=== PATIENT | male | born 1955 | race Caucasian/White ===

== ENCOUNTER → 2021-06-11 07:33 | Outpatient (CLI) | payer MEDICARE, OTHER, SELFPAY ==
--- NOTE | ~2021-06-11 | MR_ITS ---
EXAMINATION: MR shoulder RT wo con DATE: 06/11/2021 08:33 INDICATION: Right shoulder pain TECHNIQUE: Magnetic resonance imaging (MRI) of the right shoulder was performed without intravenous c ontrast. Sequences included axial PD-weighted FS FSE, coronal oblique PD-weighted FS FSE, coronal obl ique T2-weighted FS FSE, sagittal PD-weighted FS FSE, and sagittal T1-weighted SE. COMPARISON: Right shoulder radiographs dated 04/13/2021 FINDINGS: Coracoacromial arch: The acromion undersurface is curved in morphology (type II). The coracoacromial ligament is normal. M ild to moderate acromioclavicular osteoarthritis. Rotator cuff: Mild distal supraspinatus tendinopathy without discrete tear. The infraspinatus, teres minor tendons are normal. Mild subscapularis tendinopathy with partial tear involving the majority of the cephalad two thirds of the lesser tuberosity footplate. The bursal side of the tendon is intact and contiguous with the intact transverse humeral ligament. The articular side of the tendon also appears to remain intact and attached to the medial margin of the lesser tuberosity footplate. The long head biceps te ndon is subluxed across the medial rim of the intertubercular groove and across the subscapularis ten don tear defect. There is mild fatty atrophy of the subscapularis muscle belly. Biceps tendon, glenoid labrum and glenohumeral cartilage: Long head of the biceps tendon is normal. There is a tear of the 10:00 to 11:00 position of the poste rior superior glenoid labrum. Mild subarticular cystic change along the superior rim of the glenoid a t the 12:30 position which suggests either occult more anterior extension of the labral tear or focal high-grade chondromalacia. Cartilage is otherwise normal in appearance. Fluid: Physiologic amount of fluid in the glenohumeral joint and biceps tendon sheath. No loose osteochondra l bodies. No abnormally increased fluid signal in the subacromial/subdeltoid bursa to suggest bursiti s. Bones: Normal marrow signal with no edema, fracture or abnormal marrow replacing process. IMPRESSION: 1. Mild supraspinatus and subscapularis tendinopathy with partial-thickness tear involving the majori ty of the cephalad two thirds of the lesser tuberosity footplate of the subscapularis tendon allowing medial subluxation of the otherwise normal long head biceps tendon. 2. Tear at the posterior superior glenoid labrum possibly extending to involve the superior labrum gi corina the mild subarticular cystic change at the superior rim of the glenoid. 3. Mild to moderate acromioclavicular osteoarthritis. Reviewed, dictated and finalized at location A. IMPRESSION: 1. Mild supraspinatus and subscapularis tendinopathy with partial-thickness tea r involving the majority of the cephalad two thirds of the lesser tuberosity fo otplate of the subscapularis tendon allowing medial subluxation of the otherwis e normal long head biceps tendon. 2. Tear at the posterior superior glenoid labrum possibly extending to involve the superior labrum given the mild subarticular cystic change at the superior r im of the glenoid. 3. Mild to moderate acromioclavicular osteoarthritis.
== END ==
PROVIDERS: Visit Provider Nurse Practitioner Family
DX: M19.011 Primary osteoarthritis, right shoulder (principal); S43.431A Superior glenoid labrum lesion of right shoulder, initial encounter; X58.XXXA Exposure to other specified factors, initial encounter
CPT/HCPCS: 73221

== ENCOUNTER 2021-12-29 07:28 | Outpatient (CLI) | payer MEDICARE, OTHER, SELFPAY ==
--- NOTE | ~2021-12-29 | NM_ITS ---
EXAMINATION: NM bone scan limited area DATE: 12/29/2021 11:03 INDICATION: Chronic left hip pain TECHNIQUE: 25 mCi Tc-99m MDP was administered intravenously. Delayed whole-body scintigrams were obt ained. COMPARISON: Left hip MR dated 12/13/2016 and radiographs dated 09/27/2016 FINDINGS: There are photopenic defects in the region of the bilateral femoral heads consistent with bilateral t otal hip arthroplasties. Otherwise relatively symmetric pattern of bone activity with no foci of abno rmal increased uptake to suggest fracture or loosening. IMPRESSION: 1. Bilateral total hip arthroplasties with no foci of abnormal uptake to suggest loosening or fractur e. Reviewed, dictated and finalized at location B. IMPRESSION: 1. Bilateral total hip arthroplasties with no foci of abnormal uptake to sugges t loosening or fracture.
== END 2021-12-29 07:29 | disposition home or self-care (01) ==
LOC: ANHIMG 07:39
PROVIDERS: PCP Family Medicine
DX: Z96.642 Presence of left artificial hip joint (principal)
CPT/HCPCS: 78300; A9561

== ENCOUNTER 2022-06-20 23:08 | Emergency (ER) | payer MEDICARE, OTHER, SELFPAY ==
--- NOTE | ~2022-06-20 | CT_ITS ---
EXAMINATION: CT brain wo con DATE: 06/21/2022 00:28 INDICATION: Vertigo. TECHNIQUE: Computed tomography (CT) of the head was performed without intravenous contrast. The mA wa s adjusted according to patient size. Iterative reconstruction technique was employed. The dose-lengt h product was 681.00 mGy-cm. COMPARISON: None FINDINGS: There is no intracranial hemorrhage, acute infarction, or abnormal intracranial mass lesion . The ventricles are normal in size. There is mild mucosal thickening in the paranasal sinuses. The m astoid air cells are normal. There are likely changes of ocular lens replacement surgeries. IMPRESSION: 1. Normal brain. Reviewed, dictated and finalized at location B. IMPRESSION: 1. Normal brain.
[2022-06-20 23:14] VITALS: BP 176/85; PULSE 64; RESP 16; TEMP 36.4; O2SAT 98
--- NOTE | 2022-06-20 23:18 | ECG_ITS ---
Measurements Intervals [place] Rate: 57 P: 38 VT: 161 QRS: -30 QRSD: 98 T: 58 QT: 428 QTc: 420 Interpretive Statements SINUS BRADYCARDIA WITH SINUS ARRHYTHMIA BORDERLINE LEFT AXIS DEVIATION [QRS AXIS < -20] ABNORMAL ECG NO PREVIOUS ECG AVAILABLE FOR COMPARISON Electronically Signed On 06-21-2022 14:06:48 CDT by Burke Gonzales M.D.
[2022-06-20 23:34] VITALS: PULSE 63; RESP 13; O2SAT 96
[2022-06-20 23:43] VITALS: BP 154/80; PULSE 59; RESP 21; O2SAT 96
[2022-06-20 23:45] VITALS: PULSE 58; RESP 21; O2SAT 94
[2022-06-20 23:46] VITALS: BP 144/79; PULSE 61; RESP 20; O2SAT 96
[2022-06-20 23:47] VITALS: PULSE 61; RESP 20; O2SAT 96
[2022-06-20 23:56] LABS: Basophils Absolute Auto 0.1 K/mm3 (0.0-0.1); Basophils Percent Auto 0.4 % (0.2-1.2); Eosinophils Absolute Auto 0.1 K/mm3 (0-0.3); Eosinophils Percent Auto 0.9 % (0-4.4); Hematocrit 43.5 % (42.0-52.0); Hemoglobin 14.4 g/dL (14.0-18.0); Immature Granulocyte Absolute 0.05 K/mm3 (0.00-0.031); Immature Granulocyte Percent A 0.4 % (0-0.5); Lymphocytes Absolute Auto 1.59 K/mm3 (0.9-3.2); Lymphocytes Percent Auto 13.6 % (18.3-44.2); Mean Corpuscular HGB Conc 33.1 g/dl (32-36); Mean Corpuscular Volume 93.5 fl (80-100); Mean Platelet Volume 10.8 fl (7.4-10.4); Monocytes Percent Auto 8.6 % (2.6-8.5); Neutrophils Absolute Auto 8.9 K/mm3 (1.3-6.7); Neutrophils Percent Auto 76.1 % (45.5-73.1); Platelet Count Result 255 k/mm3 (150-375); Red Blood Count 4.65 M/mm3 (4.6-6.20); Red Cell Distribution Width 13.1 % (11.5-14.5); White Blood Count 11.7 K/mm3 (4.5-10.0)
[2022-06-21] VITALS (11 sets, daily range): BP systolic 144–147; BP diastolic 76–78; PULSE 52–61; RESP 18–23; O2SAT 95–96
[2022-06-21 00:09] LABS: Alanine Aminotransferase 30 U/L (6-50); Albumin Level 4.4 g/dL (3.5-5.1); Alkaline Phosphatase 86 U/L (38-126); Anion Gap 9 mmol/L (8-16); Aspartate Amino Transferase 25 U/L (17-59); Bilirubin,Total 0.4 mg/dL (0.2-1.3); Blood Urea Nitrogen 27 mg/dL (9-20); Calcium 9.1 mg/dL (8.4-10.2); Carbon Dioxide 28 mmol/L (22-30); Chloride 101 mmol/L (98-107); Estimated CRCL calculation 79 ml/min; Estimated Glomerular Filt Rate > 60; Glucose 153 mg/dL (65-110); Potassium 3.7 mmol/L (3.4-5.0); Sodium 138 mmol/L (137-145)
--- NOTE | 2022-06-21 00:25 | ED.GENADULT ---
HPI - General Adult General Chief complaint: Dizziness Stated complaint: dizziness Time Seen by Provider: 06/21/22 00:00 History of Present Illness HPI narrative: 66-year-old male with history of high cholesterol hypertension and asthma presented to the emergency department for evaluation of cute onset of dizziness. Patient states as he was laying down into bed when he had onset of a spinning sensation and had subsequent nausea vomiting and felt clammy. Patient denied any associated chest pain or shortness of breath. Patient states since the symptoms started he has had some improvement. Patient reports symptoms are worsened when laying down flat or when turning his head. Patient has no prior history of [place] or CVA. Related Data Home Medications Medication Instructions Recorded Confirmed simvastatin 80 mg tablet 80 mg PO QHS 06/09/21 06/16/22 meloxicam 15 mg tablet 15 mg PO .QOD 12/08/21 06/16/22 aspirin 81 mg tablet,delayed 81 mg PO DAILY 06/16/22 06/16/22 release (Bryson Low Dose Aspirin) oltasvoe-loa-xmuef acid 300 1 tablet PO DAILY 06/16/22 06/16/22 mcg-lycopene 600 mcg-lutein 300 mcg tablet (Centrum Silver Men) Allergies Allergy/AdvReac Type Severity Reaction Status Date / Time No Known Allergies Allergy Unknown Verified 06/20/22 23:17 Review of Systems Review of Systems: CONSTITUTIONAL: Denies fever, chills, or sweats. EYES: Denies visual changes, redness, or discharge. ENT: Denies rhinorrhea, congestion, sore throat, or otalgia. CARDIOVASCULAR: Denies chest pain, palpitations, or edema. RESPIRATORY: Denies cough or dyspnea. GASTROINTESTINAL: Denies abdominal pain, nausea, vomiting, or diarrhea. GENITOURINARY: Denies dysuria or hematuria. SKIN: Denies rash or itching. MUSCULOSKELETAL: Denies back pain, joint pain, or myalgia. NEUROLOGIC: See HPI [facility] Past Medical History Medical History Asthma Chronic right shoulder pain Dyslipidemia Erectile dysfunction Essential (primary) hypertension RENETTA on CPAP Osteoarthritis Right foot drop Right shoulder pain Right wrist tendonitis Rotator cuff tear Rotator cuff tendonitis Weight gain Surgical History Surgical History History of bilateral hip replacements (~2014) History of left knee replacement (~2012) History of lumbosacral spine surgery (~2016) Family History Family History Sibling Family history of hypercholesterolemia Hypertension Father Hypertension Acute myocardial infarction Other Arthritis Carcinoma of colon Social History Social History Smoking status: Never smoker Second hand tobacco smoke exposure: No Alcohol intake: current Alcohol use details: consumes 1 beer weekly Substance use: never Substance use type: does not use Gender identity (if verbalized by the patient): Male Exam Narrative: APPEARANCE: Well appearing, no pain, no distress, well-nourished. HEAD: normocephalic, atraumatic. EYES: PERRLA/EOMI, conjunctivae clear. NOSE: Normal no drainage EARS:TMS clear with good light reflex. NECK: Supple. No adenopathy, no masses. RESPIRATORY: Airway patent, respirations nonlabored. Clear to auscultation bilaterally, no rales, rhonchi, wheezing. CARDIOVASCULAR: Regular rate and rhythm without murmurs rubs or gallops. ABDOMINAL: Soft, nontender, nondistended, normal bowel sounds MUSCULOSKELETAL: Moves all extremities. Strength/ROM intact, No edema, No calf tenderness. NEURO: Alert. Cranial nerves II through XII intact. Normal strength and reflexes. Patient does have decreased movement of left leg due to leg pain and does have weakness of the right foot that is chronic due to right foot drop. No new neurologic abnormalities. Normal strength and coordination otherwise. Vertigo symptoms c
[2022-06-21] MEDS: MECLIZINE HCL 25 MG TABLET PO (00:26)
--- NOTE | 2022-06-21 01:46 | PC.NURSE ---
Patient ambulatory to the BR with steady gait. Denies dizziness and reports that it has resolved at this time. patient requesting DC. aware.
== END 2022-06-21 02:08 | disposition home or self-care (01) ==
PROVIDERS: Emergency Provider Emergency Medicine; PCP Family Medicine
DX: R42 Dizziness and giddiness (principal); I10 Essential (primary) hypertension; E78.5 Hyperlipidemia, unspecified; J45.909 Unspecified asthma, uncomplicated; G47.33 Obstructive sleep apnea (adult) (pediatric); M19.90 Unspecified osteoarthritis, unspecified site; Z96.643 Presence of artificial hip joint, bilateral; Z96.652 Presence of left artificial knee joint; R00.1 Bradycardia, unspecified; R94.31 Abnormal electrocardiogram [ECG] [EKG]
CPT/HCPCS: 36415; 70450; 80053; 85025; 93005; 99284; A9270

== ENCOUNTER 2022-12-19 11:10 | Outpatient (CLI) | payer MEDICARE, OTHER, SELFPAY ==
[2022-12-19 20:34] LABS: Alanine Aminotransferase 29 U/L (6-50); Albumin Level 4.7 g/dL (3.5-5.1); Alkaline Phosphatase 94 U/L (38-126); Anion Gap 5 mmol/L (8-16); Aspartate Amino Transferase 27 U/L (17-59); Bilirubin,Total 0.4 mg/dL (0.2-1.3); Blood Urea Nitrogen 17 mg/dL (9-20); Calcium 9.3 mg/dL (8.4-10.2); Carbon Dioxide 34 mmol/L (22-30); Chloride 100 mmol/L (98-107); Estimated Glomerular Filt Rate > 60; Glucose 92 mg/dL (65-110); Potassium 4.1 mmol/L (3.4-5.0); Sodium 139 mmol/L (137-145)
== END 2022-12-19 11:11 | disposition home or self-care (01) ==
LOC: ANHGOSHLAB 11:11
PROVIDERS: PCP Family Medicine; Visit Provider Family Medicine
DX: E78.5 Hyperlipidemia, unspecified (principal); I10 Essential (primary) hypertension
CPT/HCPCS: 36415; 80053

== ENCOUNTER 2023-01-17 07:38 | Outpatient (CLI) | payer MEDICARE, OTHER, SELFPAY ==
--- NOTE | 2023-01-17 07:43 | ECHO_ITS ---
Patient Info Name: Niles Colby Age: 67 years : 1955 Gender: Male Ht: 70 in Wt: 230 lbs BSA: 2.30 m2 HR: 57 bpm BP: 156 / 86 mmHg Technical Quality: Fair Exam Date: 01/17/2023 7:57 AM Exam Location: [facility] Pul[facility] Patient Status: Outpatient Admit Date: 01/17/2023 Staff Ordering Physician: Niko Shah MD H[facility]Aids Care Nurse: Leah Jones RDCS Attending Provider: Niko Shah MD Exam Type: CA echo doppler color flow Study Info Indications I10 - Essential (primary) hypertension Complete two-dimensional, color flow and Doppler transthoracic echocardiogram is performed. Summary 1. Complete two-dimensional, color flow and Doppler transthoracic echocardiogram is performed. 2. Left ventricular chamber dimension is normal. 3. Left ventricular systolic function is normal, estimated at 60-65%. 4. There is mild concentric increased left ventricular wall thickness. 5. The left ventricular diastolic function is grade II diastolic dysfunction. 6. E/e' 11 is mildly elevated. 7. Left atrial chamber dimension is mildly enlarged. 8. There is mild aortic valve sclerosis. 9. The mitral valve has moderately calcified annulus. 10. No pulmonary hypertension, estimated pulmonary arterial systolic pressure is 23 mmHg. Left Ventricle E/e' 11 is mildly elevated. Left ventricular chamber dimension is normal. Left ventricular systolic function is normal, estimated at 60-65%. There is mild concentric increased left ventricular wall thickness. The left ventricular diastolic function is grade II diastolic dysfunction. Right Ventricle Right ventricular systolic function is normal and with normal TAPSE 2.2 cm. Right ventricular chamber dimension is normal. Left Atria Left atrial chamber dimension is mildly enlarged. Right Atria Right atrial chamber dimension is normal. Aortic Valve The aortic valve is trileaflet. There is mild aortic valve sclerosis. There is no aortic valve stenosis. There is no aortic valve regurgitation. Pulmonic Valve There is no pulmonic regurgitation. Mitral Valve The mitral valve has moderately calcified annulus. There is no mitral valve stenosis. There is no mitral valve regurgitation. Tricuspid Valve There is no tricuspid valve regurgitation. No pulmonary hypertension, estimated pulmonary arterial systolic pressure is 23 mmHg. Pericardium/Pleural There is no pericardial effusion. Inferior Vena Cava Normal inferior vena cava with >50% collapse upon inspiration consistent with normal right atrial pressure, 5 mmHg. Aorta The aortic root size at the sinus of Valsalva is normal. Left Ventricular Outflow Tract Name Value Normal LVOT 2D LVOT Diameter 2.3 cm LVOT Doppler LVOT Peak Gradient 3 mmHg LVOT Mean Gradient 1 mmHg LVOT VTI 26 cm LVOT VTI/AV VTI Ratio 0.8 LVOT Stroke Volume 88 ml LVOT CO 4.3 l/min LVOT CI 1.9 l/min/m2 Pulmonic Valve Name [place]
== END 2023-01-17 07:39 | disposition home or self-care (01) ==
LOC: ANHCARD 07:39
PROVIDERS: PCP Family Medicine; Visit Provider Family Medicine
DX: R60.0 Localized edema (principal); I10 Essential (primary) hypertension
CPT/HCPCS: 93306

== ENCOUNTER 2023-02-22 01:45 | Day surgery (SDC) | payer MEDICARE, OTHER, SELFPAY ==
[2023-02-13 10:11] VITALS: BMI 31.1
--- NOTE | 2023-02-21 17:27 | PM.HPGS ---
History of Present Illness History of Present Illness Consent: Risks, benefits, and alternatives have been discussed and questions answered. Patient agrees to proceed with procedure. Chief complaint: hx colon polyps Narrative: Niles Colby is a 67 year old male referred for colon cancer screening. About 5 years ago he had removal of 2 adenomatous polyps. Review of Systems Review of Systems: All systems reviewed & are unremarkable except as noted in HPI and below PMFSH Past Medical History Medical History Asthma BPH (benign prostatic hyperplasia) Chronic right shoulder pain Chronic venous insufficiency of lower extremity Dyslipidemia Erectile dysfunction Essential (primary) hypertension RENETTA on CPAP Osteoarthritis Right foot drop Right shoulder pain Right wrist tendonitis Rotator cuff tear Rotator cuff tendonitis Weight gain Surgical History Surgical History History of bilateral hip replacements (~2014) History of left knee replacement (~2012) History of lumbosacral spine surgery (~2015) Family History Family History Sibling Family history of hypercholesterolemia Hypertension Father Hypertension Acute myocardial infarction Other Arthritis Carcinoma of colon Social History Social History Smoking status: Never smoker Second hand tobacco smoke exposure: No Alcohol intake: current Drinks per week: 4 Alcohol use details: consumes 1 beer weekly Substance use: never Substance use type: does not use Lack of Transportation: No Lack of Food: Never True Current Housing: I Have Housing Concerned About Future Housing: No Difficulty Paying Gas/Electric Bills: No Difficulty Paying for Meds: No Currently Unemployed: No Education: Trade/Vocational Certificate Difficulty w/ Childcare or Family Care: No Living arrangements: with family Additional living arrangements comments: Occupation/Education: occupation Gender identity (if verbalized by the patient): Male Sexual Orientation (if Verbalized by the Patient): Straight or Heterosexual Spiritual care concerns: No Meds Home Medications and Allergies Home Medications Medication Instructions Recorded Confirmed Type budesonide-formoterol HFA 160 2 puff inhalation Q12H #10.2 grams 12/08/21 02/22/23 Rx mcg-4.5 mcg/actuation aerosol inhaler aspirin 81 mg tablet,delayed 81 mg PO DAILY 06/16/22 02/22/23 History release (Bryson Low Dose Aspirin) vgainlxb-qjq-iehos acid 300 1 tablet PO DAILY 06/16/22 02/22/23 History mcg-lycopene 600 mcg-lutein 300 mcg tablet (Centrum Silver Men) tadalafil 20 mg tablet (Cialis) 20 mg PO DAILY PRN sexual activity 06/16/22 02/22/23 Rx #30 tabs albuterol sulfate 90 mcg/actuation 2 puff inhalation Q4H PRN 08/09/22 02/22/23 Rx aerosol inhaler shortness of breath or wheezing #3 device diltiazem HCl 240 mg capsule,24 240 mg PO DAILY #90 caps 11/07/22 02/22/23 Rx hr,extended release finasteride 5 mg tablet 5 mg PO DAILY #90 tabs 11/07/22 02/22/23 Rx losartan 100 1 tablet PO DAILY #90 tabs 11/07/22 02/22/23 Rx mg-hydrochlorothiazide 25 mg tablet meloxicam 15 mg tablet 15 mg PO .QOD #90 tabs 11/07/22 02/22/23 Rx metoprolol succinate 50 mg 50 mg PO DAILY #90 tabs 11/07/22 02/22/23 Rx tablet,extended release 24 hr simvastatin 80 mg tablet 80 mg PO QHS #90 tabs 11/07/22 02/22/23 Rx furosemide 20 mg tablet (Lasix) 20 mg PO QAM #10 tabs 12/19/22 02/22/23 Rx potassium chloride 10 mEq 10 meq PO DAILY #10 tabs 12/19/22 02/22/23 Rx tablet,extended release tamsulosin 0.4 mg capsule (Flomax) 0.4 mg PO QHS #90 caps 02/13/23 02/22/23 Rx Allergies Allergy/AdvReac Type Severity Reaction Status Date / Time No Known Allergies Allergy Unknown Verified 06
[2023-02-22 06:15] VITALS: BP 150/80; PULSE 75; RESP 16; TEMP 36.3; O2SAT 96; BMI 31.5
[2023-02-22] MEDS: LACTATED RINGERS 1,000 ML 150 ML IV CONT (06:28)
--- NOTE | 2023-02-22 07:23 | WPDANESEPPF ---
Anes - Initial Pre Proc Eval Procedure: Operation Date: 02/22/23 07:30 Proposed Procedures p Colonoscopy - Georges Santiago MD Date/Time: 02/22/23 07:23 Surgeon: Georges Santiago MD Pre Op Diagnosis: hx colon polyps Patient Data Age: 67 Gender: M Height: 1.79 m Weight: 101.2 kg Last Vital Signs Temp 97.4 F L 02/22/23 06:15 Pulse 75 02/22/23 06:15 Resp 16 02/22/23 06:15 BP 150/80 H 02/22/23 06:15 Pulse Ox 96 02/22/23 06:15 O2 Del Method Room Air 02/22/23 06:15 Allergies Allergy/AdvReac Type Severity Reaction Status Date / Time No Known Allergies Allergy Unknown Verified 02/22/23 06:14 Home Medications Medication Instructions Recorded Confirmed Type budesonide-formoterol HFA 160 2 puff inhalation Q12H #10.2 grams 12/08/21 02/22/23 Rx mcg-4.5 mcg/actuation aerosol inhaler aspirin 81 mg tablet,delayed 81 mg PO DAILY 06/16/22 02/22/23 History release (Bryson Low Dose Aspirin) seruduzo-fhx-kzcal acid 300 1 tablet PO DAILY 06/16/22 02/22/23 History mcg-lycopene 600 mcg-lutein 300 mcg tablet (Centrum Silver Men) tadalafil 20 mg tablet (Cialis) 20 mg PO DAILY PRN sexual activity 06/16/22 02/22/23 Rx #30 tabs albuterol sulfate 90 mcg/actuation 2 puff inhalation Q4H PRN 08/09/22 02/22/23 Rx aerosol inhaler shortness of breath or wheezing #3 device diltiazem HCl 240 mg capsule,24 240 mg PO DAILY #90 caps 11/07/22 02/22/23 Rx hr,extended release finasteride 5 mg tablet 5 mg PO DAILY #90 tabs 11/07/22 02/22/23 Rx losartan 100 1 tablet PO DAILY #90 tabs 11/07/22 02/22/23 Rx mg-hydrochlorothiazide 25 mg tablet meloxicam 15 mg tablet 15 mg PO .QOD #90 tabs 11/07/22 02/22/23 Rx metoprolol succinate 50 mg 50 mg PO DAILY #90 tabs 11/07/22 02/22/23 Rx tablet,extended release 24 hr simvastatin 80 mg tablet 80 mg PO QHS #90 tabs 11/07/22 02/22/23 Rx furosemide 20 mg tablet (Lasix) 20 mg PO QAM #10 tabs 12/19/22 02/22/23 Rx potassium chloride 10 mEq 10 meq PO DAILY #10 tabs 12/19/22 02/22/23 Rx tablet,extended release tamsulosin 0.4 mg capsule (Flomax) 0.4 mg PO QHS #90 caps 02/13/23 02/22/23 Rx Patient hx anesthesia problems: none Family hx anesthesia problems: none Results Review: All pre-operative results and documents have been reviewed as part of the pre-operative evaluation. [facility] Past Medical History Medical History Asthma BPH (benign prostatic hyperplasia) Chronic right shoulder pain Chronic venous insufficiency of lower extremity Dyslipidemia Erectile dysfunction Essential (primary) hypertension RENETTA on CPAP Osteoarthritis Right foot drop Right shoulder pain Right wrist tendonitis Rotator cuff tear Rotator cuff tendonitis Weight gain Surgical History Surgical History History of bilateral hip replacements (~2014) History of left knee replacement (~2012) History of lumbosacral spine surgery (~2015) Family History Family History Sibling Family history of hypercholesterolemia Hypertension Father Hypertension Acute myocardial infarction Other Arthritis Carcinoma of colon Social History Social History Smoking status: Never smoker Second hand tobacco smoke exposure: No Alcohol intake: current Drinks per week: 4 Alcohol use details: consumes 1 beer weekly Substance use: never Substance use type: does not use Lack of Transportation: No Lack of Food: Never True Current Housing: I Have Housing Concerned About Future Housing: No Difficulty Paying Gas/Electric Bills: No Difficulty Paying for Meds: No Currently Unemployed: No Education: Trade/Vocational Certificate Difficulty w/ Childcare or Family Care: No Living arrangements: with family Additional living arrangements c
[2023-02-22] MEDS: SIMETHICONE ORAL SUSPENSION 20 MG/0.3 ML 30 ML BOTTLE 0.6 ML IRRIGATION (07:38)
[2023-02-22 07:46] VITALS: BP 97/48; PULSE 67; RESP 21; O2SAT 95
[2023-02-22 07:56] VITALS: BP 118/61; PULSE 64; RESP 21; O2SAT 98
[2023-02-22 08:06] VITALS: BP 123/74; PULSE 70; RESP 20; O2SAT 98
== END 2023-02-22 08:09 | disposition home or self-care (01) ==
PROVIDERS: PCP Family Medicine; Visit Provider Internal Medicine Gastroenterology
PROC: 0DJD8ZZ Inspection of Lower Intestinal Tract, Via Natural or Artificial Opening Endoscopic (ICD-10-PCS; CPT 45378; principal; 2023-02-22 07:30)
DX: Z12.11 Encounter for screening for malignant neoplasm of colon (principal); D12.4 Benign neoplasm of descending colon; K64.8 Other hemorrhoids; K64.4 Residual hemorrhoidal skin tags; K57.30 Diverticulosis of large intestine without perforation or abscess without bleeding; J45.909 Unspecified asthma, uncomplicated; I10 Essential (primary) hypertension; G47.33 Obstructive sleep apnea (adult) (pediatric); N40.0 Benign prostatic hyperplasia without lower urinary tract symptoms; I87.2 Venous insufficiency (chronic) (peripheral); E78.5 Hyperlipidemia, unspecified; E66.9 Obesity, unspecified; Z68.31 Body mass index [BMI] 31.0-31.9, adult; Z79.51 Long term (current) use of inhaled steroids; Z79.82 Long term (current) use of aspirin
CPT/HCPCS: 45385; 88305; J2704; J7120

== ENCOUNTER 2024-05-14 15:18 | Emergency (ER) | payer MEDICARE, OTHER, SELFPAY ==
[2024-05-14 15:31] VITALS: BP 132/68; PULSE 56; RESP 16; TEMP 36.4; O2SAT 98
--- NOTE | 2024-05-14 15:41 | ED.EXTPRO ---
HPI - Extremity Problem General Chief complaint: Extremity Problem,Nontraumatic Stated complaint: Numbness in Bilateral feet Time Seen by Provider: 05/14/24 15:53 Mode of arrival: ambulatory Limitations: no limitations History of Present Illness HPI Narrative: 68-year-old male presents with concern for bilateral lower extremity numbness and tingling. Reports as charted in March in his chosen progressively work its way to his heels and now his entire feet. Reports he wears compression socks. Reports he has had to resort to using a walker because of the numbness and tingling. He denies any injury. He reports a history of having back surgery 6 years ago and has resulted drop foot. MD Complaint: other (Numbness and tingling) Related Data Home Medications Medication Instructions Recorded Confirmed aspirin 81 mg tablet,delayed 81 mg PO DAILY 06/16/22 05/14/24 release (Bryson Low Dose Aspirin) bphztczx-jt-odzdv 300 mcg-K 60 1 tablet PO DAILY 06/16/22 05/14/24 mcg-lycop 600 mcg-lutein 300 mcg tablet (Centrum Silver Men) amlodipine 5 mg tablet 5 mg PO DAILY 06/19/23 05/14/24 rosuvastatin 40 mg tablet 40 mg PO DAILY 06/19/23 05/14/24 Allergies Allergy/AdvReac Type Severity Reaction Status Date / Time No Known Allergies Allergy Unknown Verified 05/14/24 15:27 Review of Systems Review of Systems: CONSTITUTIONAL: Denies malaise, chills, sweats, or fever. CARDIOVASCULAR: Denies chest pain, palpitations, or edema. RESPIRATORY: Denies cough or dyspnea. SKIN: Denies rash or itching. MUSCULOSKELETAL: Reports numbness and tingling in the bilateral lower extremities. Denies pain. Denies redness, warmth, swelling All systems reviewed & are unremarkable except as noted in HPI and below PMFSH Past Medical History Medical History Asthma BPH (benign prostatic hyperplasia) Chronic right shoulder pain Chronic venous insufficiency of lower extremity Coronary artery disease Dyslipidemia Erectile dysfunction Essential (primary) hypertension RENETTA on CPAP Osteoarthritis Right foot drop Right shoulder pain Right wrist tendonitis Rotator cuff tear Rotator cuff tendonitis Weight gain Surgical History Surgical History History of bilateral hip replacements (~2014) History of left knee replacement (~2012) History of lumbosacral spine surgery (~2015) Family History Family History Sibling Family history of hypercholesterolemia Hypertension Father Hypertension Acute myocardial infarction Other Arthritis Carcinoma of colon Social History Social History Smoking status: Never smoker Second hand tobacco smoke exposure: No Alcohol intake: current Drinks per week: 4 Alcohol use details: consumes 1 beer weekly Substance use: never Substance use type: does not use Lack of Transportation: No Lack of Food: Never True Current Housing: I Have Housing Concerned About Future Housing: No Difficulty Paying Gas/Electric Bills: No Difficulty Paying for Meds: No Currently Unemployed: No Education: Trade/Vocational Certificate Difficulty w/ Childcare or Family Care: No Living arrangements: with family Additional living arrangements comments: Occupation/Education: occupation Gender identity (if verbalized by the patient): Male Sexual Orientation (if Verbalized by the Patient): Straight or Heterosexual Spiritual care concerns: No Comments At time of signature, agree with nursing past medical, surgical, social and family history. There is no relevant family history pertinent to the presenting complaint Exam Narrative: GENERAL: Well-appearing, well-nourished, and in no acute distress. HEAD: Normocephalic EYES: PERRLA, sclera clear ENT: Nares clear. Muc
== END 2024-05-14 16:02 | disposition home or self-care (01) ==
PROVIDERS: Emergency Provider Nurse Practitioner; PCP Family Medicine
DX: R20.0 Anesthesia of skin (principal); J45.909 Unspecified asthma, uncomplicated; N40.0 Benign prostatic hyperplasia without lower urinary tract symptoms; I25.10 Atherosclerotic heart disease of native coronary artery without angina pectoris; I10 Essential (primary) hypertension; G47.33 Obstructive sleep apnea (adult) (pediatric); M19.90 Unspecified osteoarthritis, unspecified site; Z96.643 Presence of artificial hip joint, bilateral; Z96.652 Presence of left artificial knee joint; Z79.82 Long term (current) use of aspirin
CPT/HCPCS: 99211; G0463